=== PATIENT | male | born 1975 | race Hispanic/Latino ===

== ENCOUNTER 2023-11-26 14:27 | Emergency (ER) | payer SELFPAY ==
[2023-11-26 14:37] VITALS: BP 152/68; PULSE 77; RESP 16; TEMP 36.7; O2SAT 98; BMI 34.0
--- NOTE | 2023-11-26 16:06 | DI.CT.S_ITS ---
PROCEDURE: CT HEAD/BRAIN WO CON INDICATIONS: headache TECHNIQUE: Noncontrast 4.5 mm thick angled axial sections acquired from the foramen magnum to the vertex, with coronal and sagittal reformats. For radiation dose reduction, the following was used: automated exposure control, adjustment of mA and/or kV according to patient size. COMPARISON: None. FINDINGS: Image quality: Diagnostic. CSF spaces: Basal cisterns are patent. No extra-axial fluid collections. Ventricles are normal in size and shape. Brain: No midline shift. No intracranial masses or hemorrhage. Sellers-white matter interface is normal. Skull and face: Calvarium and visualized facial bones are intact, without suspicious lesions. Sinuses: Visualized sinuses and mastoids are clear. IMPRESSION: No CT evidence of acute intracranial pathology. Dictated by: Nii Hernandez M.D. on 11/26/2023 at 17:10 Approved by: Nii Hernandez M.D. on 11/26/2023 at 17:10
--- NOTE | 2023-11-26 16:08 | PC.NURSE ---
This RN and provider used the language line to interview and access the patient.
--- NOTE | 2023-11-26 16:13 | ED.HA ---
HPI - Headache <Darrel Noyola PA-C - Last Filed: 11/26/23 18:27> General Chief Complaint: Headache Stated Complaint: fever, headache Time Seen by Provider: 11/26/23 15:14 Mode of arrival: Ambulatory History of Present Illness HPI Narrative: 48-year-old male with no reported past medical history presents to the ED with 3 days of left-sided headache, subjective fever. Patient endorses a 7/10 pain level currently in the ED. states that he took some ibuprofen this morning, prior to which his pain was 9/10. Patient does not normally get headaches. Patient also endorses some mild lightheadedness. Patient denies neck pain, chest pain, shortness of breath, runny nose, cough, sore throat, nausea, vomiting, abdominal pain, dysuria, syncope. Patient is a Korean-speaking individual, history was obtained via an manager of health. Related Data Allergies Allergy/AdvReac Type Severity Reaction Status Date / Time No Known Drug Allergies Allergy Verified 11/26/23 14:41 Review of Systems <Darrel Noyola PA-C - Last Filed: 11/26/23 18:27> Constitutional Constitutional: Denies chills, Denies fatigue, Reports fever(s), Denies frequent falls, Reports headache(s), Denies lethargy and Denies weakness Eyes Eyes: Denies change in vision, Denies eye discharge, Denies irritation and Denies loss of vision ENT Ears, Nose, Mouth, and Throat: Denies change in voice, Denies dizziness, Reports headache(s), Denies neck pain, Denies sore throat and Denies throat swelling Cardiovascular Cardiovascular: Denies chest pain, Denies irregular heart rhythm, Denies lightheadedness, Denies palpitations, Denies dyspnea, Denies dyspnea on exertion and Denies orthopnea Respiratory Respiratory: Denies cough, Denies dyspnea, Denies dyspnea on exertion and Denies wheezing Gastrointestinal Gastrointestinal: Denies abdominal pain, Denies change in bowel habits, Denies diarrhea, Denies nausea and Denies vomiting Musculoskeletal Musculoskeletal: Denies neck pain and Denies numbness Integumentary/Breasts Skin/Breast: Denies pruritus, Denies erythema, Denies rash and Denies wounds Neurologic Neurologic: Denies behavioral changes, Denies confusion, Denies dizziness, Denies frequent falls, Reports headache(s), Denies loss of vision, Denies numbness and Denies weakness Psychiatric Psychiatric: Denies anxiety, Denies behavioral changes, Denies confusion, Denies depression, Denies homicidal ideation and Denies suicidal ideation Endocrine Endocrine: Denies fatigue, Denies flushing and Denies palpitations Hematologic/Lymphatic Hematologic/Lymphatic: Denies easy bruising Allergic/Immunologic Allergic/Immunologic: Denies urticaria, Denies throat swelling and Denies wheezing Patient History <Darrel Noyola PA-C - Last Filed: 11/26/23 18:27> Social History Smoking Status: Never smoker Smoking Status: Never smoker Substance Use Type: does not use Exam <Darrel Noyola PA-C - Last Filed: 11/26/23 18:27> Narrative Exam Narrative: Const General:?cooperative, healthy appearing and comfortable HENNH Head:?normal to inspection Ears:?hearing grossly normal bilaterally Nose:?external nose normal Face and sinus:?normal facial exam and sinuses nontender Mouth:?oral mucosae normal Throat:?posterior oropharynx normal Eyes General:?appearance normal, both eyes and all related structures Neck Neck:?normal visual inspection and no lymphadenopathy noted Resp Effort & Inspection:?normal respiratory effort Auscultation:?clear to auscultation bilaterally Cardio Rate:?regular rate Rhythm:?regular rhythm Neuro General:?patient alert, patient awake and patient oriented x3; PERLLA; gait normal; CN 1-12 intact bilaterally Initial Vital Signs Initial Vital Signs: Vital Signs Temperature 98.0 F 11/26/23 14:37 Pulse Rate 77 11/26/23 14:37 Respiratory Rate 16 11/26/23 14:37 Blood Pressure 152/68 H 11/26/23 14:37 Pulse Oximetry 98 11/26/23 14:37 Oxygen Delivery Method Room Air 11/26/23 14:37 <Azeb Marie DO - Last Filed: 12/01/23 01:20> Initial Vital Signs Initial Vital Signs: Vital Signs Temperature 98.0 F 11/26/23 14:37 Pulse Rate 77 11/26/23 14:37 Respiratory Rate 16 11/26/23 14:37 Blood Pressure 152/68 H 11/26/23 14:37 Pulse Oximetry 98 11/26/23 14:37 Oxygen Delivery Method Room Air 11/26/23 14:37 Course <Darrel Noyola PA-C - Last Filed: 11/26/23 18:27> Orders Ordered: Discontinued Medications Acetaminophen (Acetaminophen 325 Mg Tablet) 975 mg PO NOW ONE Stop: 11/26/23 16:07 Last Admin: 11/26/23 16:23 Dose: 975 mg Documented By: RB Dexamethasone (Dexamethasone 10 Mg/Ml Vial) 10 mg IV NOW ONE Stop: 11/26/23 16:07 Last Admin: 11/26/23 16:24 Dose: 10 mg Documented By: RB Diphenhydramine HCl (Diphenhydramine 50 Mg/Ml Vial) 25 mg IV NOW ONE Stop: 11/26/23 16:07 Last Admin: 11/26/23 16:24 Dose: 25 mg Documented By: RB Sodium Chloride (Normal Saline 0.9%) 1,000 mls @ 1,000 mls/hr IV BOLUS ONE Stop: 11/26/23 17:05 Last Infusion: 11/26/23 17:41 Dose: Infused Documented By: Admin: 11/26/23 16:24 Dose: 1,000 mls/hr Documented By: RB Ketorolac Tromethamine (Ketorolac 30 Mg/Ml Vial) 15 mg IV NOW ONE Stop: 11/26/23 17:17 Last Admin: 11/26/23 17:41 Dose: 15 mg Documented By: RB Metoclopramide HCl (Metoclopramide 10 Mg/2 Ml Inj) 10 mg IV NOW ONE Stop: 11/26/23 16:07 Last Admin: 11/26/23 16:24 Dose: 10 mg Documented By: RB Vital Signs Vital signs: Vital Signs - 8 hr 11/26/23 14:37 11/26/23 16:53 11/26/23 18:05 Temperature 98.0 F 98.6 F Pulse Rate 77 85 76 Respiratory Rate 16 20 18 Blood Pressure 152/68 H 140/82 118/67 Pulse Oximetry 98 96 97 Oxygen Delivery Method Room Air Room Air Room Air <Azeb Marie DO - Last Filed: 12/01/23 01:20> Orders Ordered: Discontinued Medications Acetaminophen (Acetaminophen 325 Mg Tablet) 975 mg PO NOW ONE Stop: 11/26/23 16:07 Last Admin: 11/26/23 16:23 Dose: 975 mg Documented By: RB Dexamethasone (Dexamethasone 10 Mg/Ml Vial) 10 mg IV NOW ONE Stop: 11/26/23 16:07 Last Admin: 11/26/23 16:24 Dose: 10 mg Documented By: RB Diphenhydramine HCl (Diphenhydramine 50 Mg/Ml Vial) 25 mg IV NOW ONE Stop: 11/26/23 16:07 Last Admin: 11/26/23 16:24 Dose: 25 mg Documented By: RB Sodium Chloride (Normal Saline 0.9%) 1,000 mls @ 1,000 mls/hr IV BOLUS ONE Stop: 11/26/23 17:05 Last Infusion: 11/26/23 17:41 Dose: Infused Documented By: Admin: 11/26/23 16:24 Dose: 1,000 mls/hr Documented By: RB Ketorolac Tromethamine (Ketorolac 30 Mg/Ml Vial) 15 mg IV NOW ONE Stop: 11/26/23 17:17 Last Admin: 11/26/23 17:41 Dose: 15 mg Documented By: RB Metoclopramide HCl (Metoclopramide 10 Mg/2 Ml Inj) 10 mg IV NOW ONE Stop: 11/26/23 16:07 Last Admin: 11/26/23 16:24 Dose: 10 mg Documented By: RB Vital Signs Vital signs: Vital Signs - 8 hr 11/26/23 14:37 11/26/23 16:53 11/26/23 18:05 Temperature 98.0 F 98.6 F Pulse Rate 77 85 76 Respiratory Rate 16 20 18 Blood Pressure 152/68 H 140/82 118/67 Pulse Oximetry 98 96 97 Oxygen Delivery Method Room Air Room Air Room Air MDM - Headache <Darrel Noyola PA-C - Last Filed: 11/26/23 18:27> MDM Narrative Medical decision making narrative: 48-year-old male with no reported past medical history presents to the ED with 3 days of left-sided headache, subjective fever. Concern for intracranial hemorrhage versus mass versus primary headache versus dehydration versus other. Will obtain CT head. Will give IV fluids, Tylenol, Reglan, Benadryl, dexamethasone. Will hold ketorolac until CT results are back. CT head without acute findings. Patient was also given ketorolac. Patient's symptoms resolved with medications. Patient endorses 0/10 pain. Recommend ibuprofen or Tylenol if headache recurs. Recommend good hydration. Recommend follow-up with PCP as soon as possible. ED return precautions were discussed with patient. Patient verbalized understanding. Medical records reviewed: Yes Discharge Plan Departure Patient Disposition: Home Clinical Impression: Headache Instructions: DI for Headache Activity Restrictions/Additional Instructions: You were evaluated in the ED today for a headache. You were given IV fluids, ketorolac, Tylenol, Reglan, Benadryl, dexamethasone with good pain relief. The CT scan of your head was normal. Please continue to drink lots of water. You may take Tylenol or ibuprofen for the headache if it recurs. Please follow-up with the primary care doctor as soon as possible. Return to the ED if you have worsening symptoms, persistent vomiting, fever, chills Stand Alone Forms: Patient Portal/API ED Sign-out <Azeb Marie DO - Last Filed: 12/01/23 01:20> Cosign ED Attending Kali Attestation: I was immediately available in the department for consultation.
[2023-11-26] MEDS: ACETAMINOPHEN 325 MG TABLET 975 MG PO (16:23)
[2023-11-26] MEDS: DEXAMETHASONE 10 MG/ML VIAL IV (16:24)
[2023-11-26] MEDS: diphenhydrAMINE 50 MG/ML VIAL 25 MG IV (16:24)
[2023-11-26] MEDS: SODIUM CHLORIDE 0.9% 1,000 ML 1000 ML IV (16:24)
[2023-11-26] MEDS: METOCLOPRAMIDE 10 MG/2 ML INJ IV (16:24)
[2023-11-26 16:53] VITALS: BP 140/82; PULSE 85; RESP 20; O2SAT 96
[2023-11-26] MEDS: KETOROLAC 30 MG/ML VIAL 15 MG IV (17:41)
[2023-11-26 18:05] VITALS: BP 118/67; PULSE 76; RESP 18; TEMP 37; O2SAT 97
== END 2023-11-26 18:29 | disposition home or self-care (01) ==
PROVIDERS: Emergency Provider Student in an Organized Health Care Education/Training Program
DX: R51.9 Headache, unspecified (principal); R50.9 Fever, unspecified
CPT/HCPCS: 70450; 96361; 96374; 96375; 99284; J1100; J1200; J1885; J2765